=== PATIENT | female | born 1975 | race Two or more races ===

== ENCOUNTER 2017-09-12 07:41 | Outpatient (CLI) | payer OTHER | END 2017-09-12 07:49 | disposition home or self-care (01) | LOC: SONOGRAMA 07:41 | DX: E04.1 Nontoxic single thyroid nodule (principal) ==

== ENCOUNTER 2020-02-25 08:24 | Outpatient (CLI) | payer OTHER | END 2020-02-25 08:27 | disposition home or self-care (01) | LOC: SONOGRAMA 08:24 | PROVIDERS: ATTEND Pediatrics | DX: E04.1 Nontoxic single thyroid nodule (principal) ==

== ENCOUNTER 2021-12-21 10:02 | Outpatient (CLI) | payer OTHER | END 2021-12-21 10:07 | disposition home or self-care (01) | LOC: SONOGRAMA 10:02 | PROVIDERS: ATTEND Pathology Anatomic Pathology & Clinical Pathology | DX: E04.1 Nontoxic single thyroid nodule (principal) ==